=== PATIENT | male | born 1970 | race African-American/Black ===

== ENCOUNTER 2018-02-03 13:57 | Emergency (ER) | payer BC, MEDICAID ==
[~2018-02-03] VITALS: Ht 188 cm; Wt 86.0 kg
[~2018-02-03 13:57] MED LIST: FURO-151 PO; LISI-604 PO; MULT-1146 PO; THIA100T13 PO
[2018-02-03 14:28] VITALS: BP 101/74
== END 2018-02-03 20:35 | disposition home or self-care (01) ==
LOC: ER 13:57
DX: S93.401A Sprain of unspecified ligament of right ankle, initial encounter (principal); W10.9XXA Fall (on) (from) unspecified stairs and steps, initial encounter; Y93.89 Activity, other specified; Y92.89 Other specified places as the place of occurrence of the external cause; I11.0 Hypertensive heart disease with heart failure; I50.9 Heart failure, unspecified; F17.210 Nicotine dependence, cigarettes, uncomplicated; Z86.73 Personal history of transient ischemic attack (TIA), and cerebral infarction without residual deficits
CPT/HCPCS: 73610; 99284; Z7610

== ENCOUNTER 2018-03-01 06:29 | Inpatient (IN) | payer MEDICAID ==
[~2018-03-01] VITALS: Ht 188 cm; Wt 82.6 kg
[2018-03-01 09:09] LABS: BASOPHILS % 1.2 % (0.0-2.0); CHLORIDE 111 mEq/L (98-107); EOSINOPHILS % 7.7 % (0.0-5.0); HEMOGLOBIN. 12.5 g/dL (14.0-18.0); LYMPHOCYTES % 24.2 % (20.0-50.0); MEAN CORPUSCULAR HEMOGLOBIN 28.8 pg (28.0-32.0); MEAN CORPUSCULAR VOLUME 89.6 fL (80.0-94.0); MEAN PLATELET VOLUME 8.9 fl (7.4-10.4); MONOCYTES % 8.1 % (2.0-8.0); NEUTROPHILS % 58.8 % (40.0-76.0); PLATELET 206 x1000/uL (130-400); RED BLOOD CELL COUNT 4.36 mill/uL (4.7-6.1); RED CELL DISTRIBUTION WIDTH 14.1 % (11.6-14.6)
[2018-03-01] MEDS ORDERED: FUROSEMIDE 40MG TABLET PO ONE (10:30)
[2018-03-01] MEDS ORDERED: ASPIRIN 325MG TABLET PO ONE (10:30)
[2018-03-01 12:15] VITALS: BP 112/80
[2018-03-01] MEDS: CARVEDILOL 3.125 MG TABLET PO SCH ×2 (14:43→23:14)
[2018-03-01] MEDS: LISINOPRIL 2.5MG TABLET PO SCH (14:43)
[2018-03-01] MEDS ORDERED: FOLI-43 PO (14:51)
[2018-03-01] MEDS ORDERED: SPIR25TA6 PO (14:51)
[2018-03-01] MEDS ORDERED: AMLO2.5T45 PO (14:51)
[2018-03-01] MEDS ORDERED: CARV3.1242 PO (14:51)
[2018-03-01 16:00] VITALS: BP 112/80
[2018-03-01 16:49] VITALS: BP 117/86
[2018-03-01] MEDS ORDERED: ONDANSETRON HCL 4MG/2ML VIAL IV PRN (17:00)
[2018-03-01] MEDS ORDERED: DIPHENHYDRAMINE 50MG/ML VIAL IV PRN (17:00)
[2018-03-01] MEDS ORDERED: MAGNESIUM/ALUMINUM HYDROXIDE/SIMETHICONE 30ML UDC PO PRN (17:00)
[2018-03-01] MEDS ORDERED: NA PHOS,M-B/NA PHOS,DI-BA ENEMA 118ML PR PRN (17:00)
[2018-03-01] MEDS ORDERED: LORAZEPAM 2MG/ML CPJ IV PRN (17:00)
[2018-03-01] MEDS ORDERED: DOCUSATE SODIUM 100MG CAPSULE PO PRN (17:00)
[2018-03-01] MEDS ORDERED: CLONIDINE 0.1MG TABLET PO PRN (17:00)
[2018-03-01] MEDS ORDERED: ACETAMINOPHEN 325MG TABLET PO PRN (17:00)
[2018-03-01] MEDS ORDERED: IPRATROPIUM/ALBUTEROL 0.5-3(2.5)MG/3ML NEB INH PRN (17:00)
[2018-03-01] MEDS ORDERED: LORAZEPAM 0.5MG TABLET PO PRN (17:00)
[2018-03-01] MEDS: AMIODARONE HCL 200 MG TABLET PO SCH (18:46)
[2018-03-01 19:36] LABS: PHOSPHORUS 3.4 mg/dL (2.5-4.9)
[2018-03-01 19:40] LABS: CREATINE KINASE MB FRACTION 1.5 ng/mL (0.5-3.6)
[2018-03-01 20:00] VITALS: BP 109/73
[2018-03-02] VITALS: BP 116/88
[2018-03-02 00:21] LABS: *AMPHETAMINES SCREEN URINE NEGATIVE (NEGATIVE); *BARBITURATES SCREEN URINE NEGATIVE (NEGATIVE); *BENZODIAZEPINES SCREEN URINE NEGATIVE (NEGATIVE); *COCAINE SCREEN URINE NEGATIVE (NEGATIVE)
[2018-03-02 00:22] LABS: CANNABINOID URINE SCREEN NEGATIVE (NEGATIVE); METHADONE URINE SCREEN NEGATIVE (NEGATIVE); OPIATES URINE SCREEN NEGATIVE (NEGATIVE); PHENCYCLIDINE URINE SCREEN NEGATIVE (NEGATIVE)
[2018-03-02 04:00] VITALS: BP 95/74
[2018-03-02 07:57] LABS: EOSINOPHILS % 8.2 % (0.0-5.0); HEMATOCRIT. 38.9 % (42.0-52.0); HEMOGLOBIN. 12.6 g/dL (14.0-18.0); LYMPHOCYTES % 23.3 % (20.0-50.0); MEAN CORPUSCULAR HEMOGLOBIN 28.7 pg (28.0-32.0); MEAN CORPUSCULAR VOLUME 88.6 fL (80.0-94.0); MEAN PLATELET VOLUME 9.2 fl (7.4-10.4); MONOCYTES % 10.4 % (2.0-8.0); NEUTROPHILS % 57.1 % (40.0-76.0); PLATELET 225 x1000/uL (130-400); RED BLOOD CELL COUNT 4.39 mill/uL (4.7-6.1); RED CELL DISTRIBUTION WIDTH 14.3 % (11.6-14.6)
[2018-03-02 08:00] VITALS: BP 106/80
[2018-03-02 08:11] LABS: CHLORIDE 110 mEq/L (98-107)
[2018-03-02] MEDS: CARVEDILOL 3.125 MG TABLET PO SCH (08:36)
[2018-03-02] MEDS: LISINOPRIL 2.5MG TABLET PO SCH ×2 (08:36→21:00)
[2018-03-02] MEDS: AMIODARONE HCL 200 MG TABLET PO SCH ×3 (08:40→17:40)
[2018-03-02 12:00] VITALS: BP 112/64
[2018-03-02 16:00] VITALS: BP 109/56
[2018-03-02 20:00] VITALS: BP 93/64
[2018-03-02] MEDS: CARVEDILOL 6.25 MG TABLET PO SCH (21:00)
[2018-03-02] MEDS: GUAIFENESIN 200MG/10ML SUGAR FREE UDC PO PRN (22:55)
[2018-03-03 00:06] VITALS: BP 91/65
[2018-03-03 05:24] VITALS: BP 100/70
[2018-03-03 07:29] VITALS: BP 105/72
[2018-03-03] MEDS: CARVEDILOL 6.25 MG TABLET PO SCH ×2 (09:00→21:00)
[2018-03-03] MEDS: LISINOPRIL 2.5MG TABLET PO SCH ×2 (09:00→21:00)
[2018-03-03 10:16] LABS: BASOPHILS % 0.9 % (0.0-2.0); EOSINOPHILS % 2.4 % (0.0-5.0); HEMATOCRIT. 39.1 % (42.0-52.0); HEMOGLOBIN. 12.4 g/dL (14.0-18.0); LYMPHOCYTES % 24.5 % (20.0-50.0); MEAN CORPUSCULAR HEMOGLOBIN 28.4 pg (28.0-32.0); MEAN CORPUSCULAR VOLUME 89.5 fL (80.0-94.0); MEAN PLATELET VOLUME 9.1 fl (7.4-10.4); MONOCYTES % 9.7 % (2.0-8.0); NEUTROPHILS % 62.5 % (40.0-76.0); PLATELET 227 x1000/uL (130-400); RED BLOOD CELL COUNT 4.37 mill/uL (4.7-6.1); RED CELL DISTRIBUTION WIDTH 14.3 % (11.6-14.6)
[2018-03-03] MEDS: AMIODARONE HCL 200 MG TABLET PO SCH ×3 (10:34→17:50)
[2018-03-03] MEDS: FOLIC ACID 1MG TABLET PO SCH (10:34)
[2018-03-03 10:47] LABS: CHLORIDE 106 mEq/L (98-107)
[2018-03-03 11:54] VITALS: BP 102/74
[2018-03-03 16:00] VITALS: BP 97/72
[2018-03-03 20:00] VITALS: BP 98/67
[2018-03-04] VITALS: BP 95/66
[2018-03-04 00:25] VITALS: BP 95/66
[2018-03-04 04:47] VITALS: BP 101/71
[2018-03-04] MEDS: GUAIFENESIN 200MG/10ML SUGAR FREE UDC PO PRN (05:02)
[2018-03-04 07:32] LABS: BASOPHILS % 1.1 % (0.0-2.0); HEMATOCRIT. 38.4 % (42.0-52.0); HEMOGLOBIN. 12.3 g/dL (14.0-18.0); MEAN CORPUSCULAR HEMOGLOBIN 28.6 pg (28.0-32.0); MEAN CORPUSCULAR VOLUME 89.2 fL (80.0-94.0); MEAN PLATELET VOLUME 9.1 fl (7.4-10.4); MONOCYTES % 8.8 % (2.0-8.0); NEUTROPHILS % 61.1 % (40.0-76.0); PLATELET 206 x1000/uL (130-400)
[2018-03-04 08:00] VITALS: BP 111/79
[2018-03-04 08:47] LABS: CHLORIDE 107 mEq/L (98-107)
[2018-03-04] MEDS: AMIODARONE HCL 200 MG TABLET PO SCH (08:54)
[2018-03-04] MEDS: CARVEDILOL 6.25 MG TABLET PO SCH (08:54)
[2018-03-04] MEDS: LISINOPRIL 2.5MG TABLET PO SCH (08:54)
[2018-03-04] MEDS: FOLIC ACID 1MG TABLET PO SCH (08:55)
[2018-03-04] MEDS ORDERED: FUROSEMIDE 20MG TABLET PO SCH (10:45)
[2018-03-04 12:00] VITALS: BP 108/75
[2018-03-04] MEDS ORDERED: AMI2 PO (14:11)
[2018-03-04] MEDS ORDERED: FURO20TA4 PO (14:11)
[2018-03-04] MEDS ORDERED: COR6 PO (14:11)
[2018-03-04] MEDS ORDERED: LISI2.5T47 PO (14:11)
[2018-03-04 15:52] VITALS: BP 108/65
[2018-03-04] MEDS ORDERED: AMIODARONE HCL 200 MG TABLET PO SCH (17:50)
== END 2018-03-04 17:33 | disposition home or self-care (01) | DRG 194 ==
LOC: ER 07:35 → 6WST 11:43 → EDBEDREQ 11:44 → EDBEDREQTM 11:44 → ENRESERV 11:53
PROVIDERS: ADMIT Internal Medicine; ATTEND Internal Medicine
DX: I11.0 Hypertensive heart disease with heart failure (principal); I21.4 Non-ST elevation (NSTEMI) myocardial infarction; I47.2 Ventricular tachycardia; N17.9 Acute kidney failure, unspecified; I50.23 Acute on chronic systolic (congestive) heart failure; I42.9 Cardiomyopathy, unspecified; J06.9 Acute upper respiratory infection, unspecified; J40 Bronchitis, not specified as acute or chronic; F17.200 Nicotine dependence, unspecified, uncomplicated; Z91.19 Patient's noncompliance with other medical treatment and regimen; Z79.899 Other long term (current) drug therapy; Z86.73 Personal history of transient ischemic attack (TIA), and cerebral infarction without residual deficits
CPT/HCPCS: 36415; 71045; 80048; 80053; 80305; 82270; 82550; 82553; 83036; 83540; 83550; 83735; 83880; 84100; 84484; 85025; 85044; 87040; 93005; 93306; 99285; J2060; J2405

== ENCOUNTER 2018-04-10 10:53 | Inpatient (IN) | payer MEDICAID ==
[~2018-04-10] VITALS: Ht 188 cm; Wt 84.4 kg
[~2018-04-10 10:53] MED LIST changes: +AMI2 PO; +AMLO2.5T45 PO; +CARV3.1242 PO; +COR6 PO; +FOLI-43 PO; -FURO-151 PO; +FURO20TA4 PO; +LISI2.5T47 PO; -MULT-1146 PO; +SPIR25TA6 PO; -THIA100T13 PO
[2018-04-10] MEDS ORDERED: FUROSEMIDE 40MG/4ML VIAL IV STA (11:23)
[2018-04-10 12:14] LABS: BASOPHILS % 1.2 % (0.0-2.0); EOSINOPHILS % 3.5 % (0.0-5.0); HEMATOCRIT. 38.6 % (42.0-52.0); LYMPHOCYTES % 20.2 % (20.0-50.0); MEAN CORPUSCULAR HEMOGLOBIN 26.5 pg (28.0-32.0); MEAN CORPUSCULAR VOLUME 85.5 fL (80.0-94.0); MEAN PLATELET VOLUME 8.9 fl (7.4-10.4); MONOCYTES % 9.3 % (2.0-8.0); NEUTROPHILS % 65.8 % (40.0-76.0); PLATELET 209 x1000/uL (130-400); RED BLOOD CELL COUNT 4.51 mill/uL (4.7-6.1); RED CELL DISTRIBUTION WIDTH 15.1 % (11.6-14.6)
[2018-04-10 12:20] LABS: CHLORIDE 113 mEq/L (98-107)
[2018-04-10 12:35] LABS: INR 1.3
[2018-04-10] MEDS ORDERED: HYDROCODONE/ACETAMINOPHEN 5/325MG TABLET PO PRN (16:15)
[2018-04-10] MEDS ORDERED: ACETAMINOPHEN 650MG SUPP PR PRN (16:15)
[2018-04-10] MEDS ORDERED: MAGNESIUM/ALUMINUM HYDROXIDE/SIMETHICONE 30ML UDC PO PRN (16:15)
[2018-04-10] MEDS ORDERED: ONDANSETRON HCL 4MG/2ML VIAL IV PRN (16:15)
[2018-04-10] MEDS ORDERED: NA PHOS,M-B/NA PHOS,DI-BA ENEMA 118ML PR PRN (16:15)
[2018-04-10] MEDS ORDERED: ACETAMINOPHEN 650MG/20.3ML UDC GT PRN (16:15)
[2018-04-10] MEDS ORDERED: HYDROCODONE/ACETAMINOPHEN 10/325MG TABLET PO PRN (16:15)
[2018-04-10] MEDS ORDERED: LORAZEPAM 2MG/ML CPJ IV PRN (16:15)
[2018-04-10] MEDS ORDERED: DOCUSATE SODIUM 100MG CAPSULE PO PRN (16:15)
[2018-04-10] MEDS ORDERED: CLONIDINE 0.1MG TABLET PO PRN (16:15)
[2018-04-10 18:15] VITALS: BP 116/86
[2018-04-10] MEDS ORDERED: ONDANSETRON 4MG ODT PO PRN (18:15)
[2018-04-10 18:22] VITALS: BP 116/86
[2018-04-10 20:00] VITALS: BP 109/83
[2018-04-10] MEDS: GUAIFENESIN 200MG/10ML SUGAR FREE UDC PO PRN (23:22)
[2018-04-10 23:46] LABS: CLARITY URINE CLEAR (CLEAR); COLOR URINE DARK YELLOW (YELLOW); KETONES URINE NEGATIVE (NEGATIVE); LEUKOCYTE ESTERASE URINE NEGATIVE (NEGATIVE); NITRITE URINE NEGATIVE (NEGATIVE); OCCULT BLOOD URINE NEGATIVE (NEGATIVE); PROTEIN URINE NEGATIVE (NEGATIVE); SPECIFIC GRAVITY URINE 1.014 (1.005-1.030)
[2018-04-10 23:56] LABS: *AMPHETAMINES SCREEN URINE NEGATIVE (NEGATIVE); *BARBITURATES SCREEN URINE NEGATIVE (NEGATIVE); *BENZODIAZEPINES SCREEN URINE NEGATIVE (NEGATIVE); *COCAINE SCREEN URINE NEGATIVE (NEGATIVE); METHADONE URINE SCREEN NEGATIVE (NEGATIVE); OPIATES URINE SCREEN NEGATIVE (NEGATIVE); PHENCYCLIDINE URINE SCREEN NEGATIVE (NEGATIVE)
[2018-04-10 23:57] LABS: CANNABINOID URINE SCREEN NEGATIVE (NEGATIVE)
[2018-04-11] VITALS (7 sets, daily range): BP systolic 102–138; BP diastolic 73–99
[2018-04-11] MEDS: IPRATROPIUM/ALBUTEROL 0.5-3(2.5)MG/3ML NEB INH SCH ×4 (01:18→20:02)
[2018-04-11] MEDS: GUAIFENESIN 200MG/10ML SUGAR FREE UDC PO PRN (03:23)
[2018-04-11 06:37] LABS: EOSINOPHILS % 2.3 % (0.0-5.0); HEMOGLOBIN. 11.9 g/dL (14.0-18.0); LYMPHOCYTES % 24.1 % (20.0-50.0); MEAN CORPUSCULAR HEMOGLOBIN 26.9 pg (28.0-32.0); MEAN CORPUSCULAR VOLUME 85.6 fL (80.0-94.0); MEAN PLATELET VOLUME 9.2 fl (7.4-10.4); MONOCYTES % 10.7 % (2.0-8.0); NEUTROPHILS % 61.9 % (40.0-76.0); PLATELET 190 x1000/uL (130-400); RED BLOOD CELL COUNT 4.44 mill/uL (4.7-6.1); RED CELL DISTRIBUTION WIDTH 15.1 % (11.6-14.6)
[2018-04-11 07:06] LABS: CHLORIDE 111 mEq/L (98-107)
[2018-04-11 07:13] LABS: LDL CHOLESTEROL 61 mg/dL (5-100)
[2018-04-11 07:15] LABS: HDL CHOLESTEROL 34 mg/dL (40-59)
[2018-04-11 07:18] LABS: CREATINE KINASE 105 IU/L (39-308); CREATINE KINASE MB FRACTION 2.2 ng/mL (0.5-3.6); T4 FREE 1.19 ng/dL (0.76-1.46)
[2018-04-11] MEDS ORDERED: AMLODIPINE 2.5MG TABLET PO SCH (09:00)
[2018-04-11] MEDS: LISINOPRIL 20MG TABLET PO SCH (09:18)
[2018-04-11] MEDS: FOLIC ACID 1MG TABLET PO SCH (09:18)
[2018-04-11] MEDS: SPIRONOLACTONE 25MG TABLET PO SCH ×2 (09:19→21:00)
[2018-04-11] MEDS: AMIODARONE HCL 200 MG TABLET PO SCH ×2 (09:20→21:53)
[2018-04-11] MEDS ORDERED: CLONIDINE 0.2MG TABLET PO PRN (10:15)
[2018-04-11] MEDS: POTASSIUM CHLORIDE 20MEQ TABLET SR PO SCH ×2 (11:31→16:15)
[2018-04-11] MEDS: FUROSEMIDE 100MG/10ML VIAL IVP SCH ×2 (11:31→16:15)
[2018-04-11] MEDS: LEVOTHYROXINE SODIUM 25MCG TABLET PO SCH (11:32)
[2018-04-11] MEDS: ISOSORB DINIT/HYDRALAZINE HCL 20/37.5MG TABLET PO SCH ×2 (14:12→21:32)
[2018-04-11] MEDS: CARVEDILOL 6.25 MG TABLET PO SCH (21:00)
[2018-04-12] VITALS (9 sets, daily range): BP systolic 86–116; BP diastolic 50–85
[2018-04-12] MEDS: IPRATROPIUM/ALBUTEROL 0.5-3(2.5)MG/3ML NEB INH SCH ×4 (01:51→20:54)
[2018-04-12] MEDS: GUAIFENESIN 200MG/10ML SUGAR FREE UDC PO PRN ×2 (05:32→23:31)
[2018-04-12] MEDS: FUROSEMIDE 100MG/10ML VIAL IVP SCH ×2 (05:32→16:54)
[2018-04-12] MEDS: ISOSORB DINIT/HYDRALAZINE HCL 20/37.5MG TABLET PO SCH ×2 (05:33→14:00)
[2018-04-12] MEDS: ACETAMINOPHEN 325MG TABLET PO PRN (05:34)
[2018-04-12 07:38] LABS: BASOPHILS % 0.6 % (0.0-2.0); EOSINOPHILS % 3.9 % (0.0-5.0); HEMOGLOBIN. 12.8 g/dL (14.0-18.0); LYMPHOCYTES % 14.8 % (20.0-50.0); MEAN CORPUSCULAR HEMOGLOBIN 26.6 pg (28.0-32.0); MEAN CORPUSCULAR VOLUME 85.1 fL (80.0-94.0); MEAN PLATELET VOLUME 9.4 fl (7.4-10.4); NEUTROPHILS % 72.7 % (40.0-76.0); PLATELET 195 x1000/uL (130-400); RED BLOOD CELL COUNT 4.82 mill/uL (4.7-6.1); RED CELL DISTRIBUTION WIDTH 15.5 % (11.6-14.6)
[2018-04-12] MEDS ORDERED: LEVOTHYROXINE SODIUM 25MCG TABLET PO SCH (07:40)
[2018-04-12 08:17] LABS: CHLORIDE 109 mEq/L (98-107)
[2018-04-12 08:29] LABS: CREATINE KINASE MB FRACTION 1.6 ng/mL (0.5-3.6); PHOSPHORUS 3.1 mg/dL (2.5-4.9)
[2018-04-12 08:30] LABS: LDL CHOLESTEROL 61 mg/dL (5-100)
[2018-04-12 08:32] LABS: CREATINE KINASE 103 IU/L (39-308); HDL CHOLESTEROL 35 mg/dL (40-59)
[2018-04-12] MEDS: AMIODARONE HCL 200 MG TABLET PO SCH ×2 (09:04→16:54)
[2018-04-12] MEDS: FOLIC ACID 1MG TABLET PO SCH (09:04)
[2018-04-12] MEDS: POTASSIUM CHLORIDE 20MEQ TABLET SR PO SCH ×2 (09:04→16:53)
[2018-04-12] MEDS: LEVOTHYROXINE SODIUM 25MCG TABLET PO SCH (09:04)
[2018-04-12] MEDS: CARVEDILOL 6.25 MG TABLET PO SCH ×2 (09:05→21:00)
[2018-04-12] MEDS: SPIRONOLACTONE 25MG TABLET PO SCH ×2 (09:05→21:00)
[2018-04-12] MEDS: LISINOPRIL 20MG TABLET PO SCH (09:06)
[2018-04-12] MEDS: ENOXAPARIN 100MG/ML SYR SUBCUT SCH (17:27)
[2018-04-12] MEDS ORDERED: WARFARIN SODIUM 5MG TABLET PO NR (18:00)
[2018-04-13] VITALS: BP 98/60
[2018-04-13] MEDS: IPRATROPIUM/ALBUTEROL 0.5-3(2.5)MG/3ML NEB INH SCH ×4 (02:07→20:58)
[2018-04-13 04:00] VITALS: BP 100/58
[2018-04-13 06:33] LABS: INR 1.2; PROTHROMBIN TIME 12.3 sec (9.4-11.6)
[2018-04-13 06:38] LABS: BASOPHILS % 0.9 % (0.0-2.0); EOSINOPHILS % 4.7 % (0.0-5.0); HEMATOCRIT. 38.7 % (42.0-52.0); HEMOGLOBIN. 12.3 g/dL (14.0-18.0); LYMPHOCYTES % 17.9 % (20.0-50.0); MEAN CORPUSCULAR HEMOGLOBIN 26.9 pg (28.0-32.0); MEAN CORPUSCULAR VOLUME 84.8 fL (80.0-94.0); MEAN PLATELET VOLUME 9.3 fl (7.4-10.4); MONOCYTES % 9.4 % (2.0-8.0); NEUTROPHILS % 67.1 % (40.0-76.0); PLATELET 186 x1000/uL (130-400); RED BLOOD CELL COUNT 4.57 mill/uL (4.7-6.1); RED CELL DISTRIBUTION WIDTH 14.9 % (11.6-14.6)
[2018-04-13 06:49] LABS: CHLORIDE 107 mEq/L (98-107)
[2018-04-13] MEDS: GUAIFENESIN 200MG/10ML SUGAR FREE UDC PO PRN (06:53)
[2018-04-13] MEDS: ENOXAPARIN 100MG/ML SYR SUBCUT SCH ×2 (06:53→16:21)
[2018-04-13 08:30] VITALS: BP 102/74
[2018-04-13] MEDS: CARVEDILOL 6.25 MG TABLET PO SCH (09:00)
[2018-04-13] MEDS: SPIRONOLACTONE 25MG TABLET PO SCH (09:00)
[2018-04-13] MEDS: LISINOPRIL 20MG TABLET PO SCH (09:00)
[2018-04-13] MEDS: FUROSEMIDE 100MG/10ML VIAL IVP SCH ×2 (09:11→16:20)
[2018-04-13] MEDS: LEVOTHYROXINE SODIUM 25MCG TABLET PO SCH (09:14)
[2018-04-13] MEDS: POTASSIUM CHLORIDE 20MEQ TABLET SR PO SCH ×2 (09:14→16:20)
[2018-04-13] MEDS: FOLIC ACID 1MG TABLET PO SCH (09:14)
[2018-04-13] MEDS: AMIODARONE HCL 200 MG TABLET PO SCH ×2 (10:32→17:52)
[2018-04-13 12:00] VITALS: BP 107/76
[2018-04-13 16:15] VITALS: BP 105/77
[2018-04-13] MEDS ORDERED: WARFARIN SODIUM 7.5MG TABLET PO SCH (18:00)
[2018-04-13 20:00] VITALS: BP 115/79
[2018-04-13] MEDS: CARVEDILOL 3.125 MG TABLET PO SCH (21:31)
[2018-04-14] VITALS (7 sets, daily range): BP systolic 100–134; BP diastolic 74–99
[2018-04-14] MEDS: IPRATROPIUM/ALBUTEROL 0.5-3(2.5)MG/3ML NEB INH SCH ×4 (02:14→20:31)
[2018-04-14] MEDS: ENOXAPARIN 100MG/ML SYR SUBCUT SCH ×2 (04:04→15:20)
[2018-04-14] MEDS: ACETAMINOPHEN 325MG TABLET PO PRN (04:20)
[2018-04-14] MEDS: GUAIFENESIN 200MG/10ML SUGAR FREE UDC PO PRN (06:10)
[2018-04-14] MEDS: FUROSEMIDE 100MG/10ML VIAL IVP SCH ×2 (06:15→18:29)
[2018-04-14 06:36] LABS: INR 1.2; PROTHROMBIN TIME 12.6 sec (9.4-11.6)
[2018-04-14 07:04] LABS: CHLORIDE 108 mEq/L (98-107)
[2018-04-14 07:13] LABS: BASOPHILS % 0.9 % (0.0-2.0); EOSINOPHILS % 4.3 % (0.0-5.0); HEMOGLOBIN. 12.2 g/dL (14.0-18.0); LYMPHOCYTES % 19.8 % (20.0-50.0); MEAN CORPUSCULAR HEMOGLOBIN 26.5 pg (28.0-32.0); MEAN PLATELET VOLUME 9.3 fl (7.4-10.4); MONOCYTES % 9.2 % (2.0-8.0); NEUTROPHILS % 65.8 % (40.0-76.0); PLATELET 192 x1000/uL (130-400); RED BLOOD CELL COUNT 4.58 mill/uL (4.7-6.1); RED CELL DISTRIBUTION WIDTH 15.5 % (11.6-14.6)
[2018-04-14] MEDS: AMIODARONE HCL 200 MG TABLET PO SCH ×2 (08:13→18:30)
[2018-04-14] MEDS: POTASSIUM CHLORIDE 20MEQ TABLET SR PO SCH ×2 (08:13→18:29)
[2018-04-14] MEDS: FOLIC ACID 1MG TABLET PO SCH (08:14)
[2018-04-14] MEDS: LEVOTHYROXINE SODIUM 25MCG TABLET PO SCH (08:18)
[2018-04-14] MEDS: CARVEDILOL 3.125 MG TABLET PO SCH ×2 (08:18→21:39)
[2018-04-14] MEDS: LISINOPRIL 5MG TABLET PO SCH (09:00)
[2018-04-14] MEDS ORDERED: WARFARIN SODIUM 10MG TABLET PO SCH (18:00)
[2018-04-15] MEDS: IPRATROPIUM/ALBUTEROL 0.5-3(2.5)MG/3ML NEB INH SCH ×2 (02:09→15:03)
[2018-04-15 04:00] VITALS: BP 115/78
[2018-04-15] MEDS: GUAIFENESIN 200MG/10ML SUGAR FREE UDC PO PRN (05:37)
[2018-04-15] MEDS: ENOXAPARIN 100MG/ML SYR SUBCUT SCH (05:37)
[2018-04-15] MEDS: ACETAMINOPHEN 325MG TABLET PO PRN (05:38)
[2018-04-15 08:00] VITALS: BP 111/83
[2018-04-15 08:09] LABS: BASOPHILS % 0.8 % (0.0-2.0); EOSINOPHILS % 3.6 % (0.0-5.0); HEMATOCRIT. 40.5 % (42.0-52.0); HEMOGLOBIN. 12.6 g/dL (14.0-18.0); LYMPHOCYTES % 28.8 % (20.0-50.0); MEAN CORPUSCULAR HEMOGLOBIN 26.6 pg (28.0-32.0); MEAN CORPUSCULAR VOLUME 85.4 fL (80.0-94.0); MEAN PLATELET VOLUME 9.7 fl (7.4-10.4); MONOCYTES % 7.4 % (2.0-8.0); NEUTROPHILS % 59.4 % (40.0-76.0); PLATELET 185 x1000/uL (130-400); RED BLOOD CELL COUNT 4.74 mill/uL (4.7-6.1); RED CELL DISTRIBUTION WIDTH 15.8 % (11.6-14.6)
[2018-04-15 08:12] LABS: INR 1.3; PROTHROMBIN TIME 13.6 sec (9.4-11.6)
[2018-04-15] MEDS: CARVEDILOL 3.125 MG TABLET PO SCH (08:20)
[2018-04-15] MEDS: FOLIC ACID 1MG TABLET PO SCH (08:20)
[2018-04-15] MEDS: LEVOTHYROXINE SODIUM 25MCG TABLET PO SCH (08:20)
[2018-04-15] MEDS: POTASSIUM CHLORIDE 20MEQ TABLET SR PO SCH (08:20)
[2018-04-15] MEDS: FUROSEMIDE 100MG/10ML VIAL IVP SCH (08:21)
[2018-04-15] MEDS: AMIODARONE HCL 200 MG TABLET PO SCH (08:22)
[2018-04-15] MEDS: LISINOPRIL 5MG TABLET PO SCH (08:31)
[2018-04-15 08:54] LABS: CHLORIDE 103 mEq/L (98-107)
[2018-04-15 11:45] LABS: HEPATITIS B SURFACE ANTIGEN NEGATIVE
[2018-04-15] MEDS ORDERED: FURO40TA5 MT (11:58)
[2018-04-15] MEDS ORDERED: LISI-186 PO (11:58)
[2018-04-15] MEDS ORDERED: AMI2 PO (11:58)
[2018-04-15] MEDS ORDERED: COR3 PO (11:58)
[2018-04-15] MEDS ORDERED: WARF7.5T48 MT (11:58)
[2018-04-15] MEDS ORDERED: FOLI-43 PO (11:58)
[2018-04-15] MEDS ORDERED: POTA20TA82 PO (11:58)
[2018-04-15] MEDS ORDERED: LEVO25TA7 PO (11:58)
[2018-04-15 12:13] LABS: HEPATITIS B CORE AB IGM NEGATIVE
[2018-04-15 12:14] LABS: HEPATITIS A AB IGM NEGATIVE (NEGATIVE)
[2018-04-15 13:30] VITALS: BP 111/83
[2018-04-15] MEDS ORDERED: ENOXAPARIN 100MG/ML SYR SUBCUT SCH (16:00)
[2018-04-15] MEDS ORDERED: WARFARIN SODIUM 10MG TABLET PO NR (18:00)
== END 2018-04-15 16:45 | disposition home or self-care (01) | DRG 194 ==
LOC: ER 10:53 → OBSVTOIN 16:08 → INTOOBSV 16:08 → 7WST 16:08 → EDBEDREQ 16:10 → EDBEDREQTM 16:10 → ENRESERV 17:11
PROVIDERS: ADMIT Internal Medicine; ATTEND Internal Medicine
DX: I11.0 Hypertensive heart disease with heart failure (principal); I47.2 Ventricular tachycardia; E46 Unspecified protein-calorie malnutrition; I51.3 Intracardiac thrombosis, not elsewhere classified; R16.0 Hepatomegaly, not elsewhere classified; I50.23 Acute on chronic systolic (congestive) heart failure; I42.0 Dilated cardiomyopathy; E03.9 Hypothyroidism, unspecified; F10.10 Alcohol abuse, uncomplicated; I34.0 Nonrheumatic mitral (valve) insufficiency; I44.7 Left bundle-branch block, unspecified; F17.210 Nicotine dependence, cigarettes, uncomplicated; Z68.23 Body mass index [BMI] 23.0-23.9, adult; Z79.899 Other long term (current) drug therapy
CPT/HCPCS: 36415; 71045; 76700; 78582; 80048; 80053; 80061; 80076; 80305; 81003; 82550; 82553; 83690; 83735; 83880; 84100; 84439; 84443; 84481; 84484; 85025; 85379; 85610; 85730; 86705; 86709; 86803; 87340; 93005; 93306; 93970; 96374; 97162; 99285; A9558; J1650; J1940; J2060; J7620

== ENCOUNTER 2019-03-08 05:43 | Emergency (ER) | payer MEDICAID ==
[~2019-03-08] VITALS: Ht 180.3 cm; Wt 78.0 kg
[~2019-03-08 05:43] MED LIST changes: -AMLO2.5T45 PO; -CARV3.1242 PO; +COR3 PO; -COR6 PO; -FURO20TA4 PO; +FURO40TA5 MT; +LEVO25TA7 PO; +LISI-186 PO; -LISI-604 PO; -LISI2.5T47 PO; +POTA20TA82 PO; -SPIR25TA6 PO; +WARF7.5T48 MT
[2019-03-08 06:54] VITALS: BP 101/58
[2019-03-08] MEDS ORDERED: ACETAMINOPHEN WITH CODEINE 300/30MG TABLET PO ONE (07:00)
== END 2019-03-08 07:07 | disposition home or self-care (01) ==
LOC: ER 05:43
DX: M25.571 Pain in right ankle and joints of right foot (principal); I11.0 Hypertensive heart disease with heart failure; I50.9 Heart failure, unspecified; F17.200 Nicotine dependence, unspecified, uncomplicated; Z79.899 Other long term (current) drug therapy; W11.XXXA Fall on and from ladder, initial encounter; Y93.89 Activity, other specified; Y92.89 Other specified places as the place of occurrence of the external cause; Y99.8 Other external cause status
CPT/HCPCS: 99283